=== PATIENT | male | born 1960 | race Caucasian/White ===

== ENCOUNTER 2018-06-01 15:31 | Inpatient (IN) | payer OTHER ==
[~2018-06-01] VITALS: Ht 180.3 cm; Wt 86.2 kg
[2018-06-01] MEDS ORDERED: FURO-151 PO (15:48)
[2018-06-01] MEDS ORDERED: CARV6.252 PO (15:48)
[2018-06-01] MEDS ORDERED: ASPI-612 PO (15:48)
[2018-06-01] MEDS ORDERED: LISI-603 PO (15:49)
[2018-06-01] MEDS ORDERED: DIAZ5TAB4 PO (15:49)
[2018-06-01] MEDS ORDERED: LAMO200T2 PO (15:49)
[2018-06-01] MEDS ORDERED: AMLO5TAB7 PO (15:50)
[2018-06-01] MEDS ORDERED: ESCI5TAB PO (15:50)
[2018-06-01] MEDS ORDERED: THIAMINE HCL 200 MG/2 ML VIAL IV ONE (16:00)
[2018-06-01] MEDS ORDERED: LORAZEPAM 2 MG/1 ML VIAL IV ONE ×2 (16:00→17:00)
[2018-06-01] MEDS ORDERED: THIAMINE HCL 200 MG/2 ML VIAL ONE (16:06)
[2018-06-01] MEDS ORDERED: LORAZEPAM 2 MG/1 ML VIAL ONE ×2 (16:06→17:05)
[2018-06-01 16:17] LABS: BASOPHILS % (AUTO) 0.2 % (0.0-2.0); EOSINOPHILS % (AUTO) 0.4 % (0.0-7.0); HEMATOCRIT 37.8 % (36.7-47.1); HEMOGLOBIN 12.2 g/dL (12.5-16.3); LYMPHOCYTES # (AUTO) 0.7 K/uL (20.0-40.0); LYMPHOCYTES % (AUTO) 7.7 % (20.5-51.5); MEAN CORPUSCULAR HEMOGLOBIN 25.2 uug (23.8-33.4); MEAN CORPUSCULAR HGB CONC 32 g/dL (32.5-36.3); MEAN CORPUSCULAR VOLUME 78.5 fL (73.0-96.2); MONOCYTES # (AUTO) 0.8 K/uL (2.0-10.0); MONOCYTES % (AUTO) 8.7 % (0.0-11.0); NEUTROPHILS # (AUTO) 7.8 K/uL (1.8-8.9); PLATELET COUNT (AUTO) 250 K/uL (152-348); RED BLOOD CELL COUNT(AUTO) 4.82 MIL/uL (4.06-5.63); WHITE BLOOD COUNT (AUTO) 9.3 K/uL (3.6-10.2)
[2018-06-01 16:19] LABS: CARBON DIOXIDE 30 mmol/L (21-32); CHLORIDE 104 mmol/L (98-107); CREATININE 1.3 mg/dL (0.6-1.3); GLUCOSE 147 mg/dL (74-106); POTASSIUM 3.5 mmol/L (3.5-5.1); UREA NITROGEN, BLOOD 32 mg/dL (7-18)
[2018-06-01] MEDS ORDERED: RIVA20TA PO (16:22)
[2018-06-01 16:25] LABS: ALANINE AMINOTRANSFERASE 13 U/L (16-63); ALKALINE PHOSPHATASE 78 U/L (50-136); ASPARTATE AMINOTRANSFERASE 14 U/L (15-37); BILIRUBIN,DIRECT 0.2 mg/dL (0.0-0.2); BILIRUBIN,TOTAL 0.6 mg/dL (0.2-1.0); TOTAL PROTEIN, SERUM 7.8 g/dL (6.4-8.2)
[2018-06-01 16:28] LABS: ETHANOL < 3 MG/DL (0-0)
[2018-06-01 16:47] LABS: THYROID STIMULATING HORMONE 2.381 mIU/mL (0.358-3.740)
[2018-06-01 17:00] LABS: *BILIRUBIN,URIN 2+ (NEGATIVE); *BLOOD, URINE 2+ (NEGATIVE); *COLOR,URINE Brown (YELLOW); *KETONES,URINE 1+ (NEGATIVE); *PROTEIN,URINE 3+ (NEGATIVE); *UROBILINOGEN,URINE 0.2 E.U./dl (NORMAL); LEUKOCYTE ESTERASE ,URINE NEGATIVE (NEGATIVE); NITRITE, URINE NEGATIVE (NEGATIVE); UGLUCOSE NEGATIVE (NEGATIVE)
[2018-06-01] MEDS ORDERED: IV NORMAL SALINE 1000 ML BAG IV ONE (17:00)
[2018-06-01 17:07] LABS: *CLARITY,URINE HAZY (CLEAR)
[2018-06-01 17:09] LABS: RBC,URINE 50-80 /HPF (0-3)
[2018-06-01 17:10] LABS: MUCUS,URINE MANY /LPF (0-FEW); SQUAMOUS EPITHELIAL CELL,UR FEW /HPF (NONE SEEN)
[2018-06-01 17:12] LABS: *AMPHETAMINE, URINE NEGATIVE (NEGATIVE); *BARBITURATE, URINE NEGATIVE (NEGATIVE); *CANNABINOID, URINE NEGATIVE (NEGATIVE); *COCCAINE, URINE NEGATIVE (NEGATIVE); *OPIATE, URINE NEGATIVE (NEGATIVE); *PHENCYCLIDINE SCREEN,URINE NEGATIVE (NEGATIVE)
--- NOTE | 2018-06-01 17:17 | NUR ---
Full telephone SBAR report received by LEANDRO Du.
--- NOTE | 2018-06-01 17:30 | NUR ---
Pt. admitted to [facility], under care of Dr. Gonzalez Belongs List completed
--- NOTE | 2018-06-01 17:45 | NUR ---
Pt received from ER A&Ox2 with symptoms of paranoia and hallucinations. Pt stable and nad noted upon admission. Stacey (girlfriend): at the bedside and updated with plan of care and verbalized understanding.
[2018-06-01 18:00] VITALS: BP 120/86
[2018-06-01 19:00] VITALS: BP 138/76
[2018-06-01] MEDS ORDERED: LEVALBUTEROL HCL NEB 0.63 MG/3 ML NEBU NEB PRN (19:15)
[2018-06-01] MEDS ORDERED: ONDANSETRON 4 MG/2 ML VIAL IV PRN (19:15)
[2018-06-01] MEDS ORDERED: DIAZEPAM 5 MG TABLET PO PRN (19:15)
[2018-06-01] MEDS ORDERED: ACETAMINOPHEN 325 MG TABLET PO PRN (19:15)
[2018-06-01] MEDS ORDERED: MORPHINE SULFATE 2 MG/1 ML DISP.SYRIN IV PRN (19:15)
[2018-06-01] MEDS ORDERED: LORAZEPAM 2 MG/1 ML VIAL IV PRN (19:15)
[2018-06-01] MEDS: CARVEDILOL 6.25 MG TABLET PO SCH (19:32)
--- NOTE | 2018-06-01 19:55 | NUR ---
Pt in room alert awake with periods of hallucinations stating "I do not want to take the Propofol". Pt noted with Sinus tachy with HR 111. BP 134/77. Denies any pain or SOB. Needs frequent reminders and reorientation to place regarding plan of care. Pt was offered Coreg per MD order but refused. Phone call was made and spoke with girlfriend Stacey who was able to assist with medication compliance. Dr Gonzalez is aware. Pt needs safety monitoring and redirecting. Distraction techniques including TV made for comfort measures. 3 side rails raised. Will continue to monitor. Encouraged pt to encourage fluids and to report for any discomfort.
[2018-06-01 20:00] VITALS: BP 147/83
[2018-06-01] MEDS ORDERED: METOPROLOL TARTRATE 5 MG/5 ML VIAL IVP PRN (20:00)
--- NOTE | 2018-06-01 20:00 | NUR ---
Pt noted with minor nonmeasureable discoloration to forehead. No active bleeding, bruising, or pain noted. Refusing any pictures to be taken. Site is clean, dry, and may leave open to air.
[2018-06-01 21:00] VITALS: BP 155/100
--- NOTE | 2018-06-01 21:15 | NUR ---
Pt refusing blood pressure reading and oxygen prn.
--- NOTE | 2018-06-01 21:35 | NUR ---
Code Delano initiated. Geodone 5mg IM on hand. platform mill supervisor aware.
--- NOTE | 2018-06-01 21:36 | NUR ---
Pt BP noted 155/100. Metroprolol prn was offered but pt was non compliant and showed signs of agitation. Pt attempting to get out of bed and removing monitor leads. Reminded pt regarding plan of care and redirecting. Phone call was made again to girlfriend for agitation. PRN Ativan was given.
[2018-06-01 22:00] VITALS: BP 136/57
--- NOTE | 2018-06-01 22:00 | NUR ---
Cristofer vickers was called d/t patient attemting to leave room and towards the door and stated "I want to leave right now". Dr Gonzalez was called.
--- NOTE | 2018-06-01 22:30 | NUR ---
Dr Colunga ordered to give Ativan 1mg IVP now (once). Also Geodone 5mg IM q6 hr PRN. Noted and carried out. Ludivina from pharmacy is aware.
[2018-06-01] MEDS ORDERED: LORAZEPAM 2 MG/1 ML VIAL IV STA (22:34)
--- NOTE | 2018-06-01 23:00 | NUR ---
aware of QTc - 521. Ludivina from pharmacy able to verify Geodone.
[2018-06-01] MEDS ORDERED: ZIPRASIDONE MESYLATE 20 MG VIAL IM ONE (23:38)
[2018-06-01] MEDS: ZIPRASIDONE MESYLATE 20 MG VIAL IM PRN (23:39)
--- NOTE | 2018-06-01 23:52 | NUR ---
Unable to apply telemetry leads at this time. [facility] Nurses at bedside. Pt in no s/s of acute distress. Continues to hallucinate stating "someone is trying to kill me". Will continue to monitor.
--- NOTE | 2018-06-02 00:04 | NUR ---
BP 128/54
[2018-06-02 01:00] VITALS: BP 137/79
--- NOTE | 2018-06-02 01:20 | NUR ---
Pt up out of bed combative and non compliance against nurse trying to leave room. Code vickers initiated.
[2018-06-02] MEDS: LORAZEPAM 2 MG/1 ML VIAL IV PRN ×4 (01:23→20:52)
--- NOTE | 2018-06-02 01:30 | NUR ---
Ativan 1mg given IVP. Will continue to monitor. Needs frequent redirection and monitoring.
--- NOTE | 2018-06-02 01:31 | NUR ---
Pt still alert awake and up sitting on edge of the bed. No s/s of acute distress. Pt needs frequent monitoring for safety measures and reorientation. surveillance monitor noted sinus tach 105. Pt was given 3l/min oxygen therapy due to O2 sat 91%. Saturation increased to 94% but pt is noncom;oiant removing oxygen n/c. Bed alarm on.
--- NOTE | 2018-06-02 02:36 | NUR ---
Pt offered fluids and snacks but refusing. Music therapy initiated for distraction/comfort measures.
--- NOTE | 2018-06-02 03:31 | NUR ---
No increased s/s of agitation since music therapy. Pt continues to refuse v/s when attempted at this time. No resp distress noted. Pt awake in room at this time.
--- NOTE | 2018-06-02 04:13 | NUR ---
spa technician attempting to draw morning routine labs. Pt states "No, I don't want it".
--- NOTE | 2018-06-02 04:47 | NUR ---
Pt remains alert, awake, and in room sitting up in chair in no acute distress while listening to music.
[2018-06-02] MEDS: ZIPRASIDONE MESYLATE 20 MG VIAL IM PRN ×2 (05:55→18:16)
--- NOTE | 2018-06-02 05:56 | NUR ---
Pt attempting to leave room and out to the exit. Noncompliant with therapeutic communication. Geodone on hand and was Given.
[2018-06-02 06:00] VITALS: BP 143/103
[2018-06-02] MEDS ORDERED: ZIPRASIDONE MESYLATE 20 MG VIAL IM ONE (06:31)
--- NOTE | 2018-06-02 06:38 | NUR ---
Pt A/o and was noted with periods of paranoid episodes stating "you all are trying to kill me". Pt was able to comply with v/s except telemetry leads was refused. Able to void in diaper. Pt was offered new gown, sheets, and pillow. Encouraged fluid intake and assisted sitting up in chair. No increased agitation noted at this time. Will endorse to day shift. Pt needs frequent monitoring requireing a sitter at bedside for safety precautions.
[2018-06-02] MEDS: CARVEDILOL 6.25 MG TABLET PO SCH ×2 (07:15→20:52)
[2018-06-02] MEDS: MULTIVITAMINS,THERAPEUTIC TABLET PO SCH (07:50)
[2018-06-02] MEDS: FUROSEMIDE 20 MG/2 ML VIAL IV SCH (07:50)
[2018-06-02] MEDS: THIAMINE HCL 100 MG TABLET PO SCH (07:50)
[2018-06-02] MEDS: FOLIC ACID 1 MG TABLET PO SCH (07:50)
[2018-06-02] MEDS: PANTOPRAZOLE SODIUM 40 MG TABLET.DR PO SCH (07:50)
[2018-06-02 08:00] VITALS: BP 133/77
[2018-06-02] MEDS: LAMOTRIGINE 200 MG TABLET PO SCH (08:19)
[2018-06-02] MEDS: ESCITALOPRAM OXALATE 10 MG TABLET PO SCH (09:00)
[2018-06-02] MEDS ORDERED: Medication Not On Formulary EA (Escitalopram Oxalate (Lexapro) 1 TAB) PO SCH (09:00)
[2018-06-02] MEDS ORDERED: Medication Not On Formulary EA (Rivaroxaban (Xarelto) 1 TAB) PO SCH (09:00)
--- NOTE | 2018-06-02 11:37 | NUR ---
Pt more compliant and premium cancellation clerk able to draw am labs ordered for this morning.
--- NOTE | 2018-06-02 11:37 | NUR ---
US tech here to see pt for US Liver.
[2018-06-02 11:50] LABS: BASOPHILS # (AUTO) 0.1 K/uL (0.0-8.0); BASOPHILS % (AUTO) 1.1 % (0.0-2.0); EOSINOPHILS % (AUTO) 0.7 % (0.0-7.0); HEMOGLOBIN 11.8 g/dL (12.5-16.3); LYMPHOCYTES # (AUTO) 0.6 K/uL (20.0-40.0); LYMPHOCYTES % (AUTO) 9.5 % (20.5-51.5); MEAN CORPUSCULAR HEMOGLOBIN 25.7 uug (23.8-33.4); MEAN CORPUSCULAR HGB CONC 32 g/dL (32.5-36.3); MEAN CORPUSCULAR VOLUME 80.6 fL (73.0-96.2); MONOCYTES # (AUTO) 0.6 K/uL (2.0-10.0); MONOCYTES % (AUTO) 9.5 % (0.0-11.0); NEUTROPHILS # (AUTO) 5.4 K/uL (1.8-8.9); NEUTROPHILS % (AUTO) 79.2 % (38.5-71.5); PLATELET COUNT (AUTO) 225 K/uL (152-348); RED BLOOD CELL COUNT(AUTO) 4.59 MIL/uL (4.06-5.63); WHITE BLOOD COUNT (AUTO) 6.8 K/uL (3.6-10.2)
[2018-06-02 11:58] LABS: BILIRUBIN,TOTAL 0.6 mg/dL (0.2-1.0); CREATININE 1.3 mg/dL (0.6-1.3); MAGNESIUM 2.1 mg/dL (1.8-2.4); PHOSPHOROUS 4.4 mg/dL (2.5-4.9); POTASSIUM 3.4 mmol/L (3.5-5.1); TOTAL PROTEIN, SERUM 7.4 g/dL (6.4-8.2)
[2018-06-02 12:00] VITALS: BP 165/81
[2018-06-02] MEDS ORDERED: POTASSIUM CHLORIDE 20 MEQ POWDER PACKET PO ONE (13:15)
[2018-06-02] MEDS ORDERED: POTASSIUM CHLORIDE 20 MEQ TAB.PRT.SR PO ONE (13:15)
--- NOTE | 2018-06-02 14:08 | NUR ---
Dr. Love here to see pt and discussing plan of care with girlfriend at the bedside.
--- NOTE | 2018-06-02 15:15 | NUR ---
Brought pt down with radiology for CT head. Pt stable and nad noted upon leaving the unit.
--- NOTE | 2018-06-02 15:35 | NUR ---
Pt returned to the unit from CT head. Pt stable and nad noted upon returning to the unit.
--- NOTE | 2018-06-02 15:54 | NUR ---
Dr. Garcia here to see pt. Full report given. New orders received. Addendum: 06/02/18 at 1617 by HENRY CHEN RN *No new orders received
[2018-06-02 16:00] VITALS: BP 109/68
[2018-06-02] MEDS: FLUTICASONE/VILANTEROL 1 EACH BLST.W.DEV INH SCH (17:07)
[2018-06-02] MEDS: RIVAROXABAN 10 MG TABLET PO SCH (17:18)
--- NOTE | 2018-06-02 18:10 | NUR ---
Cristofer rodriguez called. Pt not cooperating and trying to get oob and leave the hospital. Pt stated "I want to go home and sleep..." IM Eugene given to help calm the pt down. Will monitor for effectiveness. 1:1 sitter at the bedside and safety measures maintained.
[2018-06-02 20:00] VITALS: BP 156/70
--- NOTE | 2018-06-02 20:00 | NUR ---
VSS 97.7-102 SINUS TACH-24 BP 156/70. SATS 94% ON O2 @ 2 LITERS NC. COLOR GOOD. A&O X 2 WITH CONFUSION TO NAME OF HOSPITAL AND DATE/TIME. SKIN WARM, DRY, AND INTACT THROUGHOUT WITH IV VIA LEFT AC. ABDOMEN SOFTLY DISTENDED WITH +BOWEL SOUNDS. LUNGS CTA TO BUL. VOIDS USING URINAL AT TIMES AND IS INCONTINENT AT TIMES. NO JVD OR OTHER EDEMAS WITH ALL PERIPHERAL PULSES EASILY PALPABLE. 24-SITTER AT BEDSIDE THIS PATIENT GETS CONFUSED AND ATTEMPTS TO GET OOB WITHOUT PROVOCATION. DENIES PAIINS. SHOWS NO SIGNS OF ACUTE CARDIAC/RESPIRATORY DISTRESS OR SUPPRESSION.
--- NOTE | 2018-06-02 20:55 | NUR ---
PLEASE NOTE THAT A CODE NAZ HAD TO BE CALLED PATIENT BECAME VERY COMBATIVE AND EVEN ATTEMPTED TO THROW AN IV PUMP AND POLE OUT THE WINDOW. NURSE GAVE ATIVAN 20:52 TO CALM DOWN PATIENT AND CONTROL HIS PHYSICAL AGGRESSION. AFTER ATIVAN GIVEN, PATIENT BECAME CALM AND STOPPED AGGRESSION. 24-HOUR SITTER AT BEDSIDE. NO FALLS. PATIENT'S COLOR AND GENERAL APPEARANCE GOOD.
[2018-06-03] VITALS: BP 160/73
--- NOTE | 2018-06-03 | NUR ---
VSS 97.0-104 SINUS TACH-24 BP 160/73. SATS 93% ON O2 @ 2 LITERS NC. RESTING IN BED SITTING UP. 24-HOUR SITTER AT BEDSIDE. DENIES PAINS AND SHOWS NO SIGNS OF ACUTE CARDIAC/RESPIRATORY DISTRESS OR SUPPRESSION.
--- NOTE | 2018-06-03 01:00 | NUR ---
PATIENT PLACED ON CPAP 01/20, FIO2=35%. 24-HOUR SITTER AT BEDSIDE AT ALL TIMES. NO FALLS. NO SIGNS OF ACUTE CARDIAC/RESPIRATORY DISTRESS OR SUPPRESSION.
[2018-06-03] MEDS: ZIPRASIDONE MESYLATE 20 MG VIAL IM PRN (01:16)
--- NOTE | 2018-06-03 01:20 | NUR ---
NURSE GAVE GEODON 5 MG IM GIVEN FOR AGITATION AND PATIENT ATTEMPTING TO GET NORA WITHOUT ASSIST. AFTER THE GEODON, PATIENT IS LESS AGGRESSIVE. 24-HOUR SITTER AT BEDSIDE. PATIENT SHOWS NO SIGNS OF ACUTE CARDIAC/RESPIRATORY DISTRESS OR SUPPRESSION.
[2018-06-03] MEDS ORDERED: ZIPRASIDONE MESYLATE 20 MG VIAL IM ONE (01:34)
[2018-06-03] MEDS: LORAZEPAM 2 MG/1 ML VIAL IV PRN (02:40)
--- NOTE | 2018-06-03 02:40 | NUR ---
IV INFILTRATED AND NURSE RESTARTED IV TO RIGHT FA WITH #20 ANGIO. NURSE MEDICATED PATIENT FOR AGITATION WITH ANOTHER DOSE OF ATIVAN 1 MG IV. 24-HOUR SITTER AT BEDSIDE AT ALL TIMES. NO FALLS OR INJURIES. CPAP SETTINGS ADJUSTED TO 01/19, FIO2=25%. RESTS QUIETLY. NO SIGNS OF ACUTE CARDIAC/RESPIRATORY DISTRESS OR SUPPRESSION.
--- NOTE | 2018-06-03 03:05 | NUR ---
nurse increased FIO2 to 25% to maintain spo2 >92% will cont to monitor.
[2018-06-03 04:00] VITALS: BP 113/67
--- NOTE | 2018-06-03 04:00 | NUR ---
VSS 97.9-87 NSR-24 BP 113/67. SATS 94% ON O2 @ 2 LITERS NC. Addendum: 06/03/18 at 0659 by ROSCOE CAMARGO RN PATIENT WAS MEDICATED AT 02:40 A.M. WITH ATIVAN 1 MG IV PRN PATIENT WAS ATTEMPTING TO GET OOB WITHOUT ASSIST. 24-HOUR SITTER AT BEDSIDE MONITORING PATIENT WELL. NO FURTHER SIGNS OF CARDIAC/RESPIRATORY DISTRESS OR SUPPRESSION.
[2018-06-03 05:06] LABS: BASOPHILS # (AUTO) 0.1 K/uL (0.0-8.0); BASOPHILS % (AUTO) 1.4 % (0.0-2.0); EOSINOPHILS # (AUTO) 0.1 K/uL (0.0-0.7); EOSINOPHILS % (AUTO) 1.5 % (0.0-7.0); HEMATOCRIT 34.4 % (36.7-47.1); LYMPHOCYTES # (AUTO) 0.8 K/uL (20.0-40.0); LYMPHOCYTES % (AUTO) 13.5 % (20.5-51.5); MEAN CORPUSCULAR HEMOGLOBIN 25.9 uug (23.8-33.4); MEAN CORPUSCULAR HGB CONC 32 g/dL (32.5-36.3); MEAN CORPUSCULAR VOLUME 80.9 fL (73.0-96.2); MONOCYTES # (AUTO) 0.6 K/uL (2.0-10.0); MONOCYTES % (AUTO) 9.8 % (0.0-11.0); NEUTROPHILS # (AUTO) 4.2 K/uL (1.8-8.9); NEUTROPHILS % (AUTO) 73.8 % (38.5-71.5); PLATELET COUNT (AUTO) 216 K/uL (152-348); RED BLOOD CELL COUNT(AUTO) 4.26 MIL/uL (4.06-5.63); WHITE BLOOD COUNT (AUTO) 5.7 K/uL (3.6-10.2)
[2018-06-03 05:15] LABS: BILIRUBIN,TOTAL 0.7 mg/dL (0.2-1.0); PHOSPHOROUS 3.7 mg/dL (2.5-4.9); POTASSIUM 3.8 mmol/L (3.5-5.1); TOTAL PROTEIN, SERUM 6.7 g/dL (6.4-8.2)
[2018-06-03] MEDS: PANTOPRAZOLE SODIUM 40 MG TABLET.DR PO SCH ×2 (07:00→07:04)
[2018-06-03] MEDS: CARVEDILOL 6.25 MG TABLET PO SCH ×2 (07:03→20:45)
--- NOTE | 2018-06-03 07:30 | NUR ---
report received from Radha GODOY , 57 yr old male was admitted on 06/01/18 for delirium tremens. [facility]. had severalcode christiano for disorientation and uncooperativeness, has a 1:1 sitter. at present had been sedated. IV Saline lock times 2 intact. ekg sinus rhythm 90/min Addendum: 06/03/18 at 0948 by CHARLIE VÁZQUEZ RN Amended: Links added.
[2018-06-03 08:00] VITALS: BP 100/34
--- NOTE | 2018-06-03 08:00 | NUR ---
shawn tabares, now tele status. Addendum: 06/03/18 at 0954 by CHARLIE VÁZQUEZ RN Amended: Links added.
[2018-06-03] MEDS: LAMOTRIGINE 200 MG TABLET PO SCH (09:00)
[2018-06-03] MEDS: FOLIC ACID 1 MG TABLET PO SCH (09:00)
[2018-06-03] MEDS: FLUTICASONE/VILANTEROL 1 EACH BLST.W.DEV INH SCH (09:00)
[2018-06-03] MEDS: THIAMINE HCL 100 MG TABLET PO SCH (09:00)
[2018-06-03] MEDS: ESCITALOPRAM OXALATE 10 MG TABLET PO SCH (09:00)
[2018-06-03] MEDS: MULTIVITAMINS,THERAPEUTIC TABLET PO SCH (09:00)
[2018-06-03] MEDS: FUROSEMIDE 20 MG/2 ML VIAL IV SCH (09:09)
[2018-06-03 11:00] VITALS: BP 91/64
--- NOTE | 2018-06-03 11:00 | NUR ---
RECEIVED PATIENT TRANSFERED IN FROM CCU TO ROOM 214 AN 57 YEARS OLD MALE BY BED AWAKE RESPONDED TO YES ONLY UNABLE TO CARRY ON ANY CONVERSATION HIS SISTER IS AT THE BEDSIDE AT THIS TIME PATIENT HAS NO PERSONAL BELONGINGS.HE IS ON O2 AT 2L/M BY NASAL CANULLA ATTEMPTED TO DOWN GRADE TO ROOM AIR BUT SAT WENT TO 87 % SO OXYGEN REAPPLIED AT 2L/M BY NASAL CANULLA AND SAT IS NOW 91% TELEMETRY IS SR WITH NO ECTOPY HE IS ON ONE ON ONE SITTER BUT QUIET AT THE MOMENT SAFE ENVIRONMENT PROVIDED MADE COMFORTABLE AND WILL CONTINUE TO OBSERVE.
--- NOTE | 2018-06-03 11:11 | NUR ---
report given to Severo GODOY and patient transfered to room [address] [place] [address] 1:1 sitter. mercedes is also at the [facility]. Addendum: 06/03/18 at 1111 by CHARLIE VÁZQUEZ RN Amended: Links added.
[2018-06-03 16:00] VITALS: BP 123/81
--- NOTE | 2018-06-03 17:00 | NUR ---
AWAKE ALERT AWARE BUT SOMEWHAT CONFUSED ASSISTED WITH A WALKER INTO THE BATHROOM AND PATIENT HAD A BOWEL MOVEMENT AND BACK INTO BED MADE COMFORTABLE AND WILL CONTINUE TO OBSERVE.
[2018-06-03] MEDS: RIVAROXABAN 10 MG TABLET PO SCH (17:24)
--- NOTE | 2018-06-03 19:15 | NUR ---
RECEIVED PT AWAKE, ALERT AND ORIENTEDX2. PT PLEASANT WHEN APPROACHED.SITTER AT BEDSIDE. PT COOPERATIVE BUT STILL CONFUSED. PT SHOWS NO SIGNS OF DISTRESS. IV INTACT AND PATENT AND ON HEPLOCK. CALL LIGHT WITHIN REACH. BED ALARM ON AND IN LOW POSITION, SIDE RAILS UPX2. WILL CONTINUE TO MONITOR.
[2018-06-03 20:00] VITALS: BP 122/68
[2018-06-03] MEDS ORDERED: ATORVASTATIN 10 MG TABLET PO SCH (21:00)
--- NOTE | 2018-06-03 23:00 | NUR ---
HANDS OFF REPORT TO SOHAIL GODOY. PT STABLE WITH NO ACUTE DISTRESS. IV INTACT. SAFETY AND COMFORT PROVIDED. WILL CONTINUE TO MONITOR.
--- NOTE | 2018-06-03 23:15 | NUR ---
Received pt report from WALT RAMIREZ. Pt sleeping comfortably in bed. 1:1 sitter at bedside for safety. Arousable with sound and touch. Pt denies pain or SOB at this time. No signs of acute distress. Safety precautions implemented, bed on low locked position. Call light within reach. Will continue to monitor.
--- NOTE | 2018-06-03 23:30 | NUR ---
Received pt report from WALT Bustillos. Pt awake, alert and oriented x2. IV intact with no signs of swelling or redness. Pt is agitated, restless and continues to yell. Dr. Gonzalez made aware. Awaiting orders. Safety precautions maintained at all times. Bed on low locked position. Comfort measures initiated. Will continue to monitor. Addendum: 06/04/18 at 0248 by SOHAIL WALKER RN WRONG PATIENT
--- NOTE | 2018-06-04 | NUR ---
Pt awake, restless and agitated. Dr. ROSE MD placed order of Eugene [id number]. Will administer and continue to monitor pt closely. Addendum: 06/04/18 at 0248 by SOHAIL WALKER RN WRONG PATIENT
[2018-06-04 04:00] VITALS: BP 116/70
[2018-06-04] MEDS: PANTOPRAZOLE SODIUM 40 MG TABLET.DR PO SCH (06:11)
[2018-06-04] MEDS: CARVEDILOL 6.25 MG TABLET PO SCH (06:11)
--- NOTE | 2018-06-04 06:33 | NUR ---
Pt slept well throughout the night. Arousable with name call and sound during initial rounds. 1:1 sitter at bedside for safety. Tele noted to be SR at HR 78. O2 sat 96% 2l NC. Pain med given x1 with effect. Pt has no complaints of pain, SOB or severe headache at this time. Pt shows no s/s of acute distress. Safety precautions and comfort measures maintained at all times. Call light within reach. Will endorse plan of care accordingly.
--- NOTE | 2018-06-04 07:51 | NUR ---
IN BED WITH EYES CLOSED EASILY AROUSABLE ALERT WITH SOME CONFUSSION AND OR FORGETFULNESS HAS A ONE ON ONE SITTER FOR SAFETY COMFORTABLE AT THIS TIME O2 AT 2L/M BY NASAL CANULA WITH NO SHORTNESS OF BREATH TELE SR MADE COMFORTABLE AND WILL CONTINUE TO OBSERVE.
[2018-06-04 08:00] VITALS: BP 102/59
[2018-06-04] MEDS: FUROSEMIDE 20 MG/2 ML VIAL IV SCH (08:22)
[2018-06-04] MEDS: FOLIC ACID 1 MG TABLET PO SCH (08:23)
[2018-06-04] MEDS: THIAMINE HCL 100 MG TABLET PO SCH (08:23)
[2018-06-04] MEDS: ESCITALOPRAM OXALATE 10 MG TABLET PO SCH (08:23)
[2018-06-04] MEDS: FLUTICASONE/VILANTEROL 1 EACH BLST.W.DEV INH SCH (08:23)
[2018-06-04] MEDS: LAMOTRIGINE 200 MG TABLET PO SCH (08:23)
[2018-06-04] MEDS: MULTIVITAMINS,THERAPEUTIC TABLET PO SCH (08:23)
[2018-06-04 12:00] VITALS: BP 122/77
[2018-06-04] MEDS ORDERED: ALBUTEROL SULFATE 1.25 MG/3 ML NEBU NEB PRN (12:30)
--- NOTE | 2018-06-04 12:31 | NUR ---
THE PLAN IS THAT PATIENT WILL BE DISCHARGED TODAY TO [facility] DISCHARGE ORDER ALREADY OBTAINED AWAITING FOR DISCHARGE SUMMARY BUT THE INTERNAL INVESTIGATOR STATED THAT [facility] IS WAITING FOR AUTHORIZATION FROM PATIENTS INSURANCE BEFORE ACCEPTING THE PATIENT.
--- NOTE | 2018-06-04 13:31 | NUR ---
PATIENT STATED DOES NOT WANT TO GO TO [facility] STATED THIS IS WHERE IT ALL STARTED UNABLE TO ELABORATE FUTHER SO THE DOUGH CATCHER NOTIFIED AND STATED WILL TALK WITH THE PATIENT.ALSO NOTIFIED THAT PATIENT WANTS TO WALK AROUND IN THE [address] BUT HAS NOT BEEN EVALUATED BY THE PHYSICAL THERAPY WITH ORDER FOR PHYSICAL THERAPY EVAL TODAY AND NOTED.
--- NOTE | 2018-06-04 14:00 | NUR ---
PATIENT IS MORE ALERT AND VERBALLY RESPONSIVE COOPERATIVE AND BRAINSTORMING AND ASSISTING WITH HIS DISCHARGE PROCESS.
--- NOTE | 2018-06-04 14:30 | NUR ---
CALLED AND MESSAGE LEFT WITH DR BAÑUELOS RE PATIENT NEEDS PRESCRIPTIONS SINCE HE WILL BE GOING HOME AND ON THE DISCHARGE FRONT PAGE PATIENTS HOME MEDICATIONS AND CONTINUING MEDICATIONS ARE NOT RECONCILED DR MAHARAJ STATED WILL RECONCILE.
--- NOTE | 2018-06-04 15:00 | NUR ---
PER DR MAHARAJ ITS OKAY TO GIVE PATIENT TMS FOR DISCHARGE HOME
--- NOTE | 2018-06-04 15:34 | NUR ---
FRONT WHEEL WALKER PROVIDED TO PATIENT FOR HOME USE PER PHYSICAL THERAPY EVALUATION AND RECOMMENDATION
[2018-06-04 16:39] VITALS: BP 116/68
--- NOTE | 2018-06-04 17:21 | NUR ---
HEPLOCK REMOVED AND PRESSURE APPLIED DISCHARGE INSTRUCTIONS AND TMS GIVEN TO PATIENT AND HE SIGNED AND EXPRESSED UNDERSTANDING INSTRUCTED TO CALL FOR A FOLLOW UP APPOINTMENT WITH HIS PRIMARY DOCTOR TO CONFIRM ON ALL OF HIS HOME MEDICATIONS WILL ALSO TOUCH BASE WITH AMA ONCE SHE GETS HERE.
[2018-06-04] MEDS: RIVAROXABAN 10 MG TABLET PO SCH (17:39)
--- NOTE | 2018-06-04 17:51 | NUR ---
PATIENT DISCHARGED PICKED UP BY [facility] HIS GIRL FRIEND IN SATISFACTORY CONDITION WITH ALL OF THE INSTRUCTIONS INCLUDING USING THE TMS TO FILL UP HIS NEW PRESCRIPTIONS AND TO FOLLOW UP WITH HIS PRIMARY DOCTOR WITHIN THE NEXT ONE WEEK AND SHE EXPRESSED UNDERSTANDING.
[2018-06-05 13:10] LABS: *ANTI-SCLERODERMA-70 AB <0.2 AI (0.0-0.9); *SJOGREN'S ANTI-SS-A <0.2 AI (0.0-0.9); *SJOGREN'S ANTI-SS-B <0.2 AI (0.0-0.9); *SMITH ANTIBODIES <0.2 AI (0.0-0.9); ANTI-DNA(DS) AB, QN <1 IU/mL (0-9)
== END 2018-06-04 17:50 | disposition home or self-care (01) | DRG 775 ==
LOC: ER 15:34 → CCU 17:44 → TELE 06-03 11:00 → MED 06-04 17:00
PROVIDERS: ADMIT Internal Medicine; ATTEND Internal Medicine
DX: F10.151 Alcohol abuse with alcohol-induced psychotic disorder with hallucinations (principal); I27.20 Pulmonary hypertension, unspecified; Z86.74 Personal history of sudden cardiac arrest; I11.9 Hypertensive heart disease without heart failure; I05.0 Rheumatic mitral stenosis; Y90.0 Blood alcohol level of less than 20 mg/100 ml; Z95.2 Presence of prosthetic heart valve; Z93.3 Colostomy status; Z86.73 Personal history of transient ischemic attack (TIA), and cerebral infarction without residual deficits; Z86.711 Personal history of pulmonary embolism; Z91.81 History of falling; R73.03 Prediabetes; F32.9 Major depressive disorder, single episode, unspecified; I45.10 Unspecified right bundle-branch block; G47.33 Obstructive sleep apnea (adult) (pediatric); I25.10 Atherosclerotic heart disease of native coronary artery without angina pectoris; Z87.828 Personal history of other (healed) physical injury and trauma; E78.5 Hyperlipidemia, unspecified; E86.0 Dehydration; J32.0 Chronic maxillary sinusitis; Z79.82 Long term (current) use of aspirin; Z79.01 Long term (current) use of anticoagulants; Z79.899 Other long term (current) drug therapy; K76.0 Fatty (change of) liver, not elsewhere classified; G89.29 Other chronic pain; M54.2 Cervicalgia; M54.6 Pain in thoracic spine; J44.9 Chronic obstructive pulmonary disease, unspecified; Z87.19 Personal history of other diseases of the digestive system; Z87.01 Personal history of pneumonia (recurrent); K92.1 Melena; F12.90 Cannabis use, unspecified, uncomplicated; Z87.09 Personal history of other diseases of the respiratory system
CPT/HCPCS: 36415; 70030-TC; 70450; 71045; 76705; 80307; 83550; 83735; 84100; 84153; 84443; 85025; 85651; 85730; 86038; 86592; 93005; A4663; G0378; G0480; J1940; J2060; J2270; J3411; J3486; J3490; J7040